=== PATIENT | female | born 2000 | race Caucasian/White ===

== ENCOUNTER 2021-03-28 22:32 | Emergency (ER) | payer OTHER ==
[2021-03-28 22:43] VITALS: BMI 41.5
[2021-03-29 01:38] VITALS: BP 118/69; PULSE 100; TEMP 98.1
== END 2021-03-29 02:20 | disposition home or self-care (01) ==
LOC: JERFT 22:32 → JER 22:32
DX: N76.0 Acute vaginitis (principal)
CPT/HCPCS: 76801-TC; 99284-25